=== PATIENT | male | born 1980 | race Caucasian/White ===

== ENCOUNTER 2016-12-22 11:14 | Inpatient (IN) | payer OTHER ==
[~2016-12-22] VITALS: Ht 177.8 cm; Wt 124.7 kg
[~2016-12-22 11:14] MED LIST: AMOXICILLIN500 MG PO; CLEOCIN150 MG PO
[2016-12-22 11:26] VITALS: BP 175/80
[2016-12-22 11:46] LABS: BASO # 0.1 10*3/uL (0.0-0.1); BASO % 0.6 % (0.0-1.0); EOS # 0.1 10*3/uL (0.0-0.4); EOS % 1.1 % (1.0-4.0); HEMATOCRIT 46.8 % (42.0-52.0); LYMPH # 3.8 10*3/uL (1.3-4.4); LYMPH % 35.3 % (27.0-41.0); MEAN CELL VOLUME 84.3 fl (80.0-94.0); MEAN CORPUSCULAR HGB 28.8 pg (27.0-31.0); MEAN CORPUSCULAR HGB CONC 34.2 g/dl (33.0-37.0); MEAN PLATELET VOLUME 9.9 fl (9.6-12.3); MONO # 1.2 10*3/uL (0.1-1.0); MONO % 10.6 % (3.0-9.0); NEUT # 5.6 10*3/uL (2.3-7.9); NEUT % 52.1 % (47.0-73.0); PLATELET COUNT AUTOMATED 240 10*3/uL (130-400); RED BLOOD COUNT 5.55 10*6/uL (4.50-5.90); RED CELL DISTRI WIDTH 12.9 % (0-14.5); WHITE BLOOD COUNT 10.8 10*3/uL (4.8-10.8)
[2016-12-22 11:54] LABS: PROTHROMBIN TIME 10.8 SECONDS (9.0-12.4)
[2016-12-22 12:02] LABS: ALBUMIN 4.1 gm/dl (3.1-4.5); ALKALINE PHOSPHATASE 86 U/L (45-117); BILIRUBIN, TOTAL 0.8 mg/dl (0.2-1.0); BUN 9 mg/dl (7-24); C-REACTIVE PROTEIN 0.71 MG/DL (0-0.3); CARBON DIOXIDE 27 mmol/L (21-32); CHLORIDE 106 mmol/L (98-107); CPK 198 U/L (39-308); EST GLOM FILT AFRICAN AMERICAN > 60 ml/min; GLUCOSE 134 mg/dL (65-99); MAGNESIUM 2.2 mg/dL (1.5-2.1); POTASSIUM 3.8 mmol/L (3.5-5.1); SGOT/AST 25 IU/L (3-35); SGPT/ALT 70 U/L (12-78); SODIUM 141 mmol/L (136-145); TOTAL PROTEIN 7.4 gm/dL (6.4-8.2)
[2016-12-22 12:03] LABS: TROPONIN I < 0.015 ng/ml (<0.045)
[2016-12-22 12:22] VITALS: BP 176/77
[2016-12-22 13:24] VITALS: BP 128/64
[2016-12-22 13:41] VITALS: BP 135/69
[2016-12-22 13:43] LABS: LA>2 REFLEX 2 HR DRAW NOW
[2016-12-22 16:00] VITALS: BP 141/62
[2016-12-22 20:00] VITALS: BP 147/83
[2016-12-23] VITALS: BP 160/90
[2016-12-23 06:38] LABS: BASO % 0.4 % (0.0-1.0); EOS # 0.1 10*3/uL (0.0-0.4); EOS % 1.1 % (1.0-4.0); HEMATOCRIT 47.1 % (42.0-52.0); HEMOGLOBIN 15.9 g/dl (14.0-18.0); IG # 0.1 10*3/uL (0.0-0.1); LYMPH # 3.2 10*3/uL (1.3-4.4); LYMPH % 33.4 % (27.0-41.0); MEAN CELL VOLUME 85.6 fl (80.0-94.0); MEAN CORPUSCULAR HGB 28.9 pg (27.0-31.0); MEAN CORPUSCULAR HGB CONC 33.8 g/dl (33.0-37.0); MEAN PLATELET VOLUME 10.1 fl (9.6-12.3); MONO % 10.3 % (3.0-9.0); NEUT # 5.1 10*3/uL (2.3-7.9); NEUT % 54.3 % (47.0-73.0); PLATELET COUNT AUTOMATED 224 10*3/uL (130-400); RED CELL DISTRI WIDTH 12.7 % (0-14.5); WHITE BLOOD COUNT 9.5 10*3/uL (4.8-10.8)
[2016-12-23 07:07] LABS: BUN 8 mg/dl (7-24); CARBON DIOXIDE 28 mmol/L (21-32); CHLORIDE 106 mmol/L (98-107); CHOLESTEROL 159 mg/dL (<200); EST GLOM FILT AFRICAN AMERICAN > 60 ml/min; FREE T4 0.97 ng/dl (0.76-1.46); GLUCOSE 98 mg/dL (65-99); POTASSIUM 3.7 mmol/L (3.5-5.1); SODIUM 141 mmol/L (136-145); TRIGLYCERIDES 112 mg/dl (<150); VLDL CHOLESTEROL 22 mg/dL (6-40)
[2016-12-23 07:15] LABS: HDL CHOLESTEROL 44 mg/dl (40-60); LDL CHOLESTEROL 93 mg/dL (9-159)
[2016-12-23 08:00] VITALS: BP 134/72
[2016-12-23 08:02] LABS: HEMOGLOBIN A1c 5.9 % (4.8-5.6)
== END 2016-12-23 11:27 | disposition home or self-care (01) | DRG 313 ==
LOC: ED 11:14 → EDHOLD 12:33 → 4E 12:33
PROVIDERS: Internal Medicine Hospice and Palliative Medicine; Student in an Organized Health Care Education/Training Program
DX: R07.9 Chest pain, unspecified (principal); E87.2 Acidosis; R73.9 Hyperglycemia, unspecified; E83.41 Hypermagnesemia; E66.09 Other obesity due to excess calories; F12.10 Cannabis abuse, uncomplicated; Z83.3 Family history of diabetes mellitus; Z82.49 Family history of ischemic heart disease and other diseases of the circulatory system; Z68.39 Body mass index [BMI] 39.0-39.9, adult

== ENCOUNTER 2018-11-07 11:15 | Inpatient (IN) | payer OTHER ==
[~2018-11-07] VITALS: Ht 182.9 cm; Wt 139.0 kg
--- NOTE | 2018-11-07 11:40 | NUR ---
A 38, admitted to , under the services of KAREN Malik DO with a diagnosis of NEW ONSET DIABETES. Chief complaint is POLYDYPSIA. Patient arrived via ambulatory from [place]. Initial assessment completed. Vital signs taken and recorded. KAREN MALIK DO notified of admission to the unit. Orders received. See assessment for past medical history, medications and allergies. Patient and/or family oriented to unit. [address] visitation policy reviewed. Clothing/patient valuable form completed. SKIN INTACT. DECLINES FLU AND PNEUMONIA VAX KETAN ESPINO
[2018-11-07 12:00] VITALS: BP 122/78
[2018-11-07 12:55] LABS: BASO # 0.1 10*3/uL (0.0-0.1); BASO % 0.4 % (0.0-1.0); EOS # 0.1 10*3/uL (0.0-0.4); EOS % 0.7 % (1.0-4.0); HEMATOCRIT 47.9 % (42.0-52.0); HEMOGLOBIN 17.4 g/dl (14.0-18.0); LYMPH # 3.5 10*3/uL (1.3-4.4); LYMPH % 27.8 % (27.0-41.0); MEAN CELL VOLUME 79.3 fl (80.0-94.0); MEAN CORPUSCULAR HGB 28.8 pg (27.0-31.0); MEAN CORPUSCULAR HGB CONC 36.3 g/dl (33.0-37.0); MEAN PLATELET VOLUME 10.7 fl (9.6-12.3); MONO # 1.5 10*3/uL (0.1-1.0); MONO % 11.6 % (3.0-9.0); NEUT # 7.4 10*3/uL (2.3-7.9); NEUT % 59.2 % (47.0-73.0); PLATELET COUNT AUTOMATED 283 10*3/uL (130-400); RED BLOOD COUNT 6.04 10*6/uL (4.50-5.90); RED CELL DISTRI WIDTH 12.5 % (0-14.5); WHITE BLOOD COUNT 12.5 10*3/uL (4.8-10.8)
[2018-11-07 12:57] LABS: ACT PARTIAL THROMBO TIME 21.1 SECONDS (20.8-31.5)
[2018-11-07 13:14] LABS: ALBUMIN 4.1 gm/dl (3.1-4.5); ALKALINE PHOSPHATASE 148 U/L (45-117); BUN 14 mg/dl (7-24); CHLORIDE 91 mmol/L (98-107); CHOLESTEROL 129 mg/dL (<200); CREATININE 1.12 mg/dL (0.70-1.30); FREE T4 1.17 ng/dl (0.76-1.46); HDL CHOLESTEROL 30 mg/dl (40-60); LDL CHOLESTEROL 41 mg/dL (9-159); PHOSPHOROUS 4.6 mg/dL (2.5-4.9); SGOT/AST 23 IU/L (3-35); SGPT/ALT 96 U/L (12-78); SODIUM 129 mmol/L (136-145); TOTAL PROTEIN 8.4 gm/dL (6.4-8.2); TRIGLYCERIDES 292 mg/dl (<150); VLDL CHOLESTEROL 58 mg/dL (6-40)
[2018-11-07 14:18] LABS: VITAMIN D, 25-HYDROXY 11.2 ng/mL (30-100)
--- NOTE | 2018-11-07 15:52 | NUR ---
Nutritional Support Services Note: Discussing with pt and pts parents diabetic diet. Pt with new onset DM. 1800cal diabetic diet copy given to pt. Pt has a good understanding of his diet. Has had numerous symptoms of high BS the last month to include excessive thirst, weight loss and excessive urination. He wants to comply with the diet the best that he can. Encouraged follow up with if desired. Will follow as needed. Larissa Neely Rdn Ld
[2018-11-07 16:00] VITALS: BP 134/80
--- NOTE | 2018-11-07 18:20 | NUR ---
PATIENT SLEEPING. RESPIRATIONS REGULAR, EASY WITH NO DISTRESS. BED LOW. CALL THURSTON IN REACH.
[2018-11-07 20:00] VITALS: BP 129/72
--- NOTE | 2018-11-07 23:03 | NUR ---
ASSUMED CARE OF PATIENT AT THIS TIME. PATIENT STATES HE WAS EXPERIENCING SOME CRAMPING IN L HAND. PATIENT STATES THIS IS NO LONGER OCCURRING. DENIES NEED FOR ANY PAIN MEDICATION/MUSCLE RELAXERS AND STATES "NO NEED TO CALL THE DOCTORS NOW." PATIENT EDUCATED TO NOTIFY RN IF SYMPTOMS WORSEN/PERSIST. DENIES ALL OTHER NEEDS AT PRESENT TIME. WILL MONITOR. CALL LIGHT IN REACH.
[2018-11-08] VITALS: BP 140/80
--- NOTE | 2018-11-08 03:08 | NUR ---
PATIENT ASLEEP IN BED, EASILY AROUSABLE. DENIES ANY ADDITIONAL HAND CRAMPING. ALSO DENIES ANY S/S OF HYPOGLYCEMIA. PT EDUCATED ABOUT CALL LIGHT USE. WILL MONITOR. CALL LIGHT IN REACH.
--- NOTE | 2018-11-08 05:34 | NUR ---
PT MEDICATED WITH PO TYLENOL FOR C/O HEADACHE. WILL MONITOR EFFECTIVENESS.
[2018-11-08 06:55] LABS: BASO # 0.1 10*3/uL (0.0-0.1); BASO % 0.6 % (0.0-1.0); EOS # 0.3 10*3/uL (0.0-0.4); EOS % 2.9 % (1.0-4.0); HEMATOCRIT 47.1 % (42.0-52.0); HEMOGLOBIN 16.9 g/dl (14.0-18.0); LYMPH # 2.2 10*3/uL (1.3-4.4); LYMPH % 21.7 % (27.0-41.0); MEAN CELL VOLUME 80.9 fl (80.0-94.0); MEAN CORPUSCULAR HGB CONC 35.9 g/dl (33.0-37.0); MEAN PLATELET VOLUME 10.6 fl (9.6-12.3); MONO # 1.1 10*3/uL (0.1-1.0); MONO % 11.2 % (3.0-9.0); NEUT # 6.2 10*3/uL (2.3-7.9); NEUT % 63.1 % (47.0-73.0); PLATELET COUNT AUTOMATED 244 10*3/uL (130-400); RED BLOOD COUNT 5.82 10*6/uL (4.50-5.90); RED CELL DISTRI WIDTH 12.4 % (0-14.5); WHITE BLOOD COUNT 9.9 10*3/uL (4.8-10.8)
--- NOTE | 2018-11-08 07:00 | NUR ---
PT SLEEPING. RESPS REG/EASY WITH NO DISTRESS NOTED AT THIS TIME. BEDSIDE REPORT RECEIVED FROM JEAN MARIE LANDRY. HUSSAIN LOW
[2018-11-08 07:10] LABS: BUN 13 mg/dl (7-24); CHLORIDE 92 mmol/L (98-107); CREATININE 0.89 mg/dL (0.70-1.30); POTASSIUM 3.9 mmol/L (3.5-5.1); SODIUM 129 mmol/L (136-145)
[2018-11-08 08:00] VITALS: BP 130/80
--- NOTE | 2018-11-08 08:19 | NUR ---
24 HR CHART CHECK COMPLETE
--- NOTE | 2018-11-08 10:30 | NUR ---
PT C/O BLURRED VISION. BLOOD SUGAR CRITICAL HIGH PER MONITOR. STAT REFLEX ORDERED WITH RESULT OF 447. DR LINARES INFORMED. 14 UNITS OF HUMALOG ADMINISTERED PER ORDER. WILL RECHECK IN AN HOUR. AT 1135 PTS REPEAT BLOOD SUGAR WAS 388. DR LINARES INFORMED. AN ADDITIONAL 14 UNITS OF HUMALOG WAS ADMINISTERED PER ORDER. WILL RECHECK IN AN HOUR.
--- NOTE | 2018-11-08 11:45 | NUR ---
Co Founder & Ceo in to talk to patient. Patient states lives at HOME with GIRLFRIEND. There are MULTIBLE steps in the home. Physician: NONE Pharmacy: [email or web address] Home health services: NONE Patient's level of ADLs: INDEPENDENT Patient has working utilities: YES DME: NONE Follow-up physician's appointment after d/c: WILL FIND ONE AND MAKE APPOINTMENT AFTER DISCHARGE Does patient want to access PORTAL?: NO Discharge plan PT STATES HE LIVES AT HOME WITH HIS GIRLFRIEND AND IS INDEPENDENT IN HIS CARE. STATES HE HAS NO NEEDS ON DISCHARGE EXCEPT MAYBE A GLUCOMETER. WILL CALL PHARMACY TO SEE IF THEY HAVE ANY AVAILABLE FOR PT. WILL CONTINUE TO FOLLOW. WILL HAVE A RIDE HOME.. MYNOR TORRES
--- NOTE | 2018-11-08 11:51 | NUR ---
SPOKE WITH PHARMACY THEY WILL BE GOING UP TO DO EDUCATION WITH PT AND WILL GIVE HIM A GLUCOMETER.
--- NOTE | 2018-11-08 13:50 | NUR ---
RECHECKED PTS BLOOD SUGAR. [address] LINARES INFORMED. ADMINISTERED 14 UNITS OF HUMALOG PER ORDER. PT ASYMPTOMATIC. WILL RECHECK
[2018-11-08 16:00] VITALS: BP 142/71
--- NOTE | 2018-11-08 16:42 | NUR ---
PTS BLOOD SUGAR RECHECK 284 PER GLUCOMETER. ADMINISTERED INSULIN PER SLIDING SCALE. PTS REMAINS ASYMPTOMATIC.
[2018-11-08 20:00] VITALS: BP 120/80
--- NOTE | 2018-11-08 21:00 | NUR ---
PT SLEEPING. EASILY AWAKENED. ROUTINE MEDICATIONS WELL TOLERATED. NO PT NEEDS VOICED AT THIS TIME. BED LOW. CALL THURSTON IN REACH.
[2018-11-09] VITALS: BP 126/78
[2018-11-09 06:38] LABS: BASO % 0.5 % (0.0-1.0); EOS # 0.2 10*3/uL (0.0-0.4); HEMATOCRIT 46.3 % (42.0-52.0); HEMOGLOBIN 16.1 g/dl (14.0-18.0); LYMPH # 1.5 10*3/uL (1.3-4.4); LYMPH % 19.4 % (27.0-41.0); MEAN CELL VOLUME 81.5 fl (80.0-94.0); MEAN CORPUSCULAR HGB 28.3 pg (27.0-31.0); MEAN CORPUSCULAR HGB CONC 34.8 g/dl (33.0-37.0); MEAN PLATELET VOLUME 10.2 fl (9.6-12.3); MONO # 1.1 10*3/uL (0.1-1.0); MONO % 14.3 % (3.0-9.0); NEUT # 4.8 10*3/uL (2.3-7.9); NEUT % 62.3 % (47.0-73.0); PLATELET COUNT AUTOMATED 203 10*3/uL (130-400); RED BLOOD COUNT 5.68 10*6/uL (4.50-5.90); RED CELL DISTRI WIDTH 12.3 % (0-14.5); WHITE BLOOD COUNT 7.7 10*3/uL (4.8-10.8)
[2018-11-09 06:50] LABS: BUN 11 mg/dl (7-24); CHLORIDE 94 mmol/L (98-107); CREATININE 0.88 mg/dL (0.70-1.30); POTASSIUM 3.9 mmol/L (3.5-5.1); SODIUM 131 mmol/L (136-145)
[2018-11-09 08:00] VITALS: BP 135/68
[2018-11-09] MEDS ORDERED: VITAMIN D5000 UNI1 PO (10:53)
[2018-11-09] MEDS ORDERED: Humalog SQ (10:53)
[2018-11-09] MEDS ORDERED: LISINOPRIL2.5 MG PO (10:53)
[2018-11-09] MEDS ORDERED: Lantus SC (10:53)
[2018-11-09] MEDS ORDERED: ATORVASTATIN CA20 M1 PO (10:53)
--- NOTE | 2018-11-09 11:49 | NUR ---
PATIENT DEMONSTRATED USE OF GLUCOMETER TO TEST BLOOD SUGAR, CORRECTLY IDENTIFIED DOSE OF INSULIN REQUIRED FOR THE RESULT ON THE SLIDING SCALE. HE THEN DEMONSTRATED CORRECT TECHNIQUE WITH DRAWING UP INSULIN, SELECTING SITE, USE OF ALCOHOL WIPES ON VIAL AND INJECTION SITE, AND INJECTION OF INSULIN. PATIENT HAS A GLUCOMETER TO TAKE HOME, IS AWAITING DISCHARGE, WOULD LIKE TO FILL HIS PRESCRIPTIONS HERE AT [facility]. WILL PROVIDE SLIDING SCALE FOR HIS REFERENCE.
--- NOTE | 2018-11-09 12:43 | NUR ---
Discharge instructions reviewed with patient/family. Patient receptive and verbalizes understanding. Follow-up care arranged. Written instructions given to patient/family. PRESCRIPTIONS WILL BE READY FOR HIM IN 30 MINUTES, PER THE [facility] STAFF. LOBO RUSSELL
--- NOTE | 2018-11-09 13:30 | NUR ---
PATIENT DISCHARGED TO [facility], AMBULATORY, FOR TRANSPORT HOME BY PRIVATE VEHICLE WITH HIS GIRLFRIEND.
--- NOTE | 2018-11-09 13:44 | NUR ---
Nutritional Support Services Note: Follow up done with pt for diabetic diet. He had no questions at this time. Encouraged compliance to diet and follow up if needed. Larissa Neely Rdn Ld
== END 2018-11-09 13:30 | disposition home or self-care (01) | DRG 638 ==
LOC: 5E 11:15
PROVIDERS: Internal Medicine; ADMIT Emergency Medicine
DX: E11.65 Type 2 diabetes mellitus with hyperglycemia (principal); E87.1 Hypo-osmolality and hyponatremia; E78.1 Pure hyperglyceridemia; R74.0 Nonspecific elevation of levels of transaminase and lactic acid dehydrogenase [LDH]; E87.8 Other disorders of electrolyte and fluid balance, not elsewhere classified; E55.9 Vitamin D deficiency, unspecified; D72.829 Elevated white blood cell count, unspecified; E66.09 Other obesity due to excess calories; Z82.49 Family history of ischemic heart disease and other diseases of the circulatory system; Z83.3 Family history of diabetes mellitus; Z79.899 Other long term (current) drug therapy